=== PATIENT | male | born 1995 | race Caucasian/White ===

== ENCOUNTER → 2017-09-29 | Outpatient (CLI) | payer OTHER | END | disposition home or self-care (01) | LOC: C.MAMM 10:10 | PROVIDERS: ATTEND Internal Medicine | DX: R63.0 Anorexia (principal) ==

== ENCOUNTER → 2018-04-09 | Outpatient (CLI) | payer OTHER ==
--- NOTE | 2018-04-09 15:15 | ECHOCARDIOGRAM REPORT ---
*NOTICE TO RECEIVING DEMOCRAT AGENCY This information is strictly Confidential and protected under [place] law. [place] law prohibits you from making any further disclosure of this information unless further disclosure is expressly permitted by the written consent of the person to whom it pertains or is authorized by law. A general authorization for the release of medical or other information is not sufficient for this purpose. Hospital accepts no responsibility if the information is made available to any other person, INCLUDING THE PATIENT. Interpretation Summary * Name: HOLGER VILLAFUERTE Study Date: 04/09/2018 01:26 PM BP: 146/52 mmHg * Patient Location: [facility] HR: 50 * : 1995 (M/d/yyyy) Gender: Male Height: 72 in * Age: 22 yrs Ethnicity: CA Weight: 175 lb * Ordering Physician: Nicole Diehl * Referring Physician: Nicole Diehl * Performed By: Yue Burgos RDCS * * Reason For Study: Anorexia, bradycardia * BSA: 2.0 m2 * -- Conclusions -- * The left ventricle is mildly dilated. * Left ventricular systolic function is normal. * Normal diastolic function * Right ventricular systolic pressure is normal. Procedure Details * A complete two-dimensional transthoracic echocardiogram was performed (2D, M-mode, Doppler and color flow Doppler). Left Ventricle * The left ventricle is mildly dilated. * There is normal left ventricular wall thickness. * Ejection Fraction = 60-65%. * Left ventricular systolic function is normal. * Normal diastolic function * The left ventricular wall motion is normal. Right Ventricle * The right ventricle is normal in size and function. Atria * The left atrial size is normal. * Right atrial size is normal. Mitral Valve * The mitral valve anatomy is normal. * Significant mitral regurgitation is absent. Tricuspid Valve * The tricuspid valve is not well visualized, but is grossly normal. * There is trace tricuspid regurgitation. * Right ventricular systolic pressure is normal. Aortic Valve * The aortic valve is normal in structure and function. * The aortic valve is trileaflet. * No hemodynamically significant valvular aortic stenosis. * There is no significant aortic regurgitation. Pulmonic Valve * The pulmonic valve is not well seen, but is grossly normal. * Trace pulmonic valvular regurgitation. Great Vessels * The aortic root is normal size. Pericardium/Pleural * There is no pericardial effusion. MMode 2D Measurements and Calculations IVSd 0.83 cm LVIDd 5.9 cm LVIDs 3.7 cm LVPWd 0.79 cm IVS/LVPW 1.1 FS 36.6 % EDV(Teich) 172.6 ml ESV(Teich) 59.4 ml EF(Teich) 65.6 % EDV(cubed) 204.5 ml ESV(cubed) 52.0 ml EF(cubed) 74.6 % LV mass(C)d 183.7 grams LV mass(C)dI 91.3 grams/m\S\2 SV(Teich) 113.2 ml SI(Teich) 56.3 ml/m\S\2 SV(cubed) 152.4 ml SI(cubed) 75.7 ml/m\S\2 Ao root diam 3.0 cm Ao root area 6.9 cm\S\2 ACS 2.3 cm LA dimension 2.8 cm asc Aorta Diam 2.6 cm LA/Ao 0.93 LVOT diam 2.0 cm LVOT area 3.2 cm\S\2 LVAd ap4 38.2 cm\S\2 LVLd ap4 8.7 cm EDV(MOD-sp4) 137.5 ml EDV(sp4-el) 142.3 ml LVAs ap4 21.9 cm\S\2 LVLs ap4 6.9 cm ESV(MOD-sp4) 58.4 ml ESV(sp4-el) 58.7 ml EF(MOD-sp4) 57.6 % EF(sp4-el) 58.8 % LVAd ap2 39.5 cm\S\2 LVLd ap2 9.8 cm EDV(MOD-sp2) 131.6 ml EDV(sp2-el) 134.9 ml LVAs ap2 22.4 cm\S\2 LVLs ap2 8.0 cm ESV(MOD-sp2) 53.2 ml ESV(sp2-el) 53.4 ml EF(MOD-sp2) 59.6 % EF(sp2-el) 60.4 % LVLd %diff 11.4 % EDV(MOD-bp) 143.2 ml LVLs %diff 13.2 % ESV(MOD-bp) 60.1 ml EF(MOD-bp) 58.0 % SV(MOD-sp4) 79.1 ml SI(MOD-sp4) 39.3 ml/m\S\2 SV(MOD-sp2) 78.4 ml SI(MOD-sp2) 38.9 ml/m\S\2 SV(MOD-bp) 83.1 ml SI(MOD-bp) 41.3 ml/m\S\2 SV(sp4-el) 83.6 ml SI(sp4-el) 41.6 ml/m\S\2 SV(sp2-el) 81.5 ml SI(sp2-el) 40.5 ml/m\S\2 Doppler Measurements and Calculations MV E max rasheed 89.7 cm/sec MV A max rasheed 35.4 cm/sec MV E/A 2.5 MV dec time 0.38 sec Ao V2 max 158.8 cm/sec Ao max PG 10.1 mmHg Ao max PG (full) 4.9 mmHg YUE(V,A) 2.3 cm\S\2 YUE(V,D) 2.3 cm\S\2 LV V1 max PG 5.2 mmHg LV V1 max 114.0 cm/sec PA V2 max 119.4 cm/sec PA max PG 5.7 mmHg PA acc slope 437.4 cm/sec\S\2 PA acc time 0.20 sec PI max rasheed 124.9 cm/sec PI max PG 6.2 mmHg PI dec slope 79.1 cm/sec\S\2 PI P1/2t 462.5 msec TR max rasheed 135.1 cm/sec PA pr(Accel) -11.32 mmHg
== END | disposition home or self-care (01) ==
LOC: C.CPL 13:13
PROVIDERS: ATTEND Family Medicine
DX: R63.0 Anorexia (principal); R00.1 Bradycardia, unspecified